=== PATIENT | female | born 1945 | race Caucasian/White ===

== ENCOUNTER 2016-09-23 15:25 | Emergency (ER) | payer MEDICARE, OTHER ==
[2016-09-23 14:47] LABS: ASCORBIC ACID (UR NOT ORDER) NEG (NEG); BILIRUBIN, URINE NEGATIVE (NEG); ER URINALYSIS TAT 0 Hrs 13 Mins; KETONE, URINE NEGATIVE (NEG); LEUKOCYTE ESTERASE(NOT OR MOD (NEG); NITRITE (URINE) NEG (NEG); WBC (NOT ORDERED) (RFLEX) 6 (0-5)
[~2016-09-23 15:25] MED LIST: DIOVAN HC2 PO; FOLIC ACID PO; NEUR300 PO; NORCO1 TA1 PO; P5 PO; PLAQ200B PO; SULFAZINE EC500 MG PO; ULTRAM50 PO; VITAMIN D31000 UNIT PO
[2016-09-23 16:29] LABS: BASOPHILS 0.1 %; BASOPHILS ABSOLUTE 0.01 10/3/uL (0.0-0.16); EOSINOPHILS 0.9 %; EOSINOPHILS ABSOLUTE 0.07 10/3/uL (0.0-0.53); ER CBC TAT 0 Hrs 09 Mins; HEMATOCRIT 30.5 % (36.0-48.0); HEMOGLOBIN 9.5 g/dL (12.0-16.0); IMMATURE GRANULOCYTES 0.7 %; IMMATURE GRANULOCYTES ABSOLUTE 0.06 10/3/uL (0.0-0.11); LYMPHOCYTES 6.4 %; LYMPHOCYTES ABSOLUTE 0.52 10/3/uL (0.67-4.30); MANUAL DIFF NO %; MEAN CORPUS HGB CONC 31.1 g/dL (32.0-36.0); MEAN CORPUSCULAR HEMOGLOB 27.8 pg (26.0-34.0); MEAN CORPUSCULAR VOLUME 89.2 fL (80-100); MEAN PLATELET VOLUME 8.6 fL (9.2-13.0); MONOCYTES 4.2 %; MONOCYTES ABSOLUTE 0.34 10/3/uL (0.21-1.20); NEUTROPHILS 87.7 %; NEUTROPHILS ABSOLUTE 7.17 10/3/uL (2.02-8.40); PLATELET COUNT 284 10/3/uL (150-400); RBC DISTRIBUTION WIDTH 14.4 % (12.0-16.0); RED CELL COUNT 3.42 10/6/uL (4.0-5.6); WHITE BLOOD CELLS 8.2 10/3/uL (4.5-10.5)
[2016-09-23 16:44] LABS: A/G RATIO 0.7 (0.7-1.9); ALBUMIN 2.8 G/DL (3.5-5.0); CALCIUM, SERUM 9.4 MG/DL (8.5-10.4); CHLORIDE, SERUM 101 MMOL/L (96-112); CO2 (CARBON DIOXIDE) 35 MMOL/L (24-34); CPK 46 U/L (0-200); CREATININE 0.98 MG/DL (0.55-1.02); GFR AFRICAN AMERICAN 68 ML/MIN (>=60); GFR NON AFRICAN AMERICAN 59 ML/MIN (>=60); GLOBULIN 4.2 G/DL (2.5-4.1); POTASSIUM, SERUM 4.1 MMOL/L (3.5-5.3); SGOT(AST) 25 U/L (5-40); SGPT(ALT) 23 U/L (5-65); SODIUM, SERUM 141 MMOL/L (135-148); TOTAL BILIRUBIN 0.5 MG/DL (0-1.2)
[2016-09-23 16:45] LABS: ALKALINE PHOSPHATASE 231 U/L (45-117); BUN (BLOOD UREA NITROGEN) 19 MG/DL (6-23); GLUCOSE, SERUM 114 MG/DL (60-99)
[2016-09-27] MEDS ORDERED: NEUR100 PO (15:35)
[2016-09-27] MEDS ORDERED: SULFAZINE EC500 MG PO (15:39)
[2016-09-27] MEDS ORDERED: P10 PO (15:39)
[2016-09-27] MEDS ORDERED: PLAQ200B PO (15:39)
[2016-09-27] MEDS ORDERED: VITAMIN D1000 UNI1 PO (15:40)
[2016-09-27] MEDS ORDERED: ULTRAM50 PO (15:40)
[2016-09-27] MEDS ORDERED: FOLIC PO (15:40)
[2016-09-27] MEDS ORDERED: MIRALAX POWDER1 PKT PO (15:40)
[2016-09-27] MEDS ORDERED: PCET PO (15:40)
[2016-09-27] MEDS ORDERED: STIOLTO RESPIMAT4 GM INH (15:41)
== END 2016-09-23 18:10 | disposition home or self-care (01) ==
LOC: ER 15:25
PROVIDERS: Physician Assistant
DX: S42.032A Displaced fracture of lateral end of left clavicle, initial encounter for closed fracture (principal); R10.2 Pelvic and perineal pain; I10 Essential (primary) hypertension; Z79.52 Long term (current) use of systemic steroids; Z79.899 Other long term (current) drug therapy; W01.0XXA Fall on same level from slipping, tripping and stumbling without subsequent striking against object, initial encounter
CPT/HCPCS: 73030-LT; 73060-LT; 73110-LT; 73502-LT; 73552-LT; 80053; 81001; 82550; 85025; 87086; 99284; A9270-GY

== ENCOUNTER 2016-09-27 16:17 | Inpatient (IN) | payer MEDICARE, OTHER ==
--- NOTE | ~2016-09-27 | DS ---
Discharge Summary [facility] [address] [place]. [address] NAME: SHAWNA GALINDO : 47 STATUS : DIS IN PAT#: [id number] AGE: 70 ADM/REG DATE : 09/27/16 MR#: [id number] REPORT SERV DATE: 10/01/16 DICTATED BY: FLAKITO KING DATE: 09/30/16 REPORT STATUS : Draft TRANSCRIBED BY: MODL DATE: 09/30/16 ADMISSION DATE: 09/27/2016 DISCHARGE DATE: 09/30/2016 DISCHARGE DIAGNOSES: Include: 1. Pelvic fractures status post fall. 2. Gait impairment and acute pain. 3. History of rheumatoid arthritis. 4. Nausea, improved. 5. Anemia, chronic. 6. History of chronic obstructive pulmonary disease, on chronic home O2. 7. Old right humerus fracture. 8. Recent hysterectomy on 09/13/2016 for endometrial cancer. DISCHARGE MEDICATIONS: As follows vitamin D 1000 units p.o. daily, folic acid 1 mg daily, gabapentin 300 mg at bedtime, Plaquenil 200 mg daily, Sulfazine EC 500 mg 4 tablets twice a day, prednisone 10 mg daily, MiraLAX one packet daily, tramadol 50 mg every four hours p.r.n. for pain, Percocet 5/325 one tablet every four hours p.r.n. for pain if not relieved by the Ultram, milk of magnesia p.r.n., Dulcolax suppositories 10 mg p.r.n., Duo-Nebs q.4 hours p.r.n. for shortness of breath and wheezing. HISTORY OF PRESENT ILLNESS: This is very pleasant, 70-year-old white female, who presented to the [facility] Emergency Room having fallen and with inability to walk or bear weight, found to have acute pelvic fractures. Please see the initial H and P of Dr. Kia Rendon. This patient was admitted to the Hospitalist Service for further evaluation and treatment and for rehab placement. CONSULTANTS DURING THIS ADMISSION: Include Orthopedic, Dr. Amado Beyer. CONTINUATION OF HOSPITAL COURSE: The patient was seen by Orthopedic surgery, Dr. Beyer. This was a nonsurgical pelvic fracture, and she was found to be weightbearing as tolerated. She was seen by Physical Therapy who recommended inpatient rehab placement, and the patient continued to do well with Physical Therapy. While hospitalized here, she did have some mild anemia per lab work which was followed but has been stable. She also had some mild nausea which has resolved. She was continued on her 2 L nasal cannula which she uses chronically. She has had no fevers. Kidney function has been fine. Blood pressure has also been within normal limits as well. She was felt safe for discharge to [facility] on 09/30/2016, instructed to follow up with her primary care after discharge from rehab. Questions were answered of patient. DICTATED BY: Flakito King NP CSC/RUTHY Discharge Summary [address] [place]. [address] NAME: SHAWNA GALINDO : 47 STATUS : DIS IN PAT#: [id number] AGE: 70 ADM/REG DATE : 09/27/16 MR#: [id number] REPORT SERV DATE: 10/01/16 DICTATED BY: FLAKITO KING [facility] DATE: 09/30/16 REPORT STATUS : Draft TRANSCRIBED BY: RUTHY DATE: 09/30/16 Flakito King NP / [id number] CC: Alexandru Hudson M.D.
--- NOTE | ~2016-09-27 | HP ---
History And Physical [address] [place]. [address] NAME: SHAWNA GALINDO : 47 STATUS : ADM IN [facility]#: [id number] AGE: 70 ADM/REG DATE : 09/27/16 MR#: [id number] REPORT SERV DATE: 09/28/16 DICTATED BY: ANGEL RIVER DATE: 09/28/16 REPORT STATUS : Draft TRANSCRIBED BY: MODL DATE: 09/28/16 DATE OF ADMISSION: 09/27/2016 CHIEF COMPLAINT: Right hip and groin pain and sacral pain. HISTORY: 70-year-old female who has had increasing pain to the sacrum and pelvis area for the last week, that she has been seen in the office previously by another surgeon. Had CT scan ordered for, I get report but I am not been able to get the films, show stable pelvis fracture. Denies any significant pain or injury elsewhere. She has a complicated recent history with hysterectomy and chemo planned. ALLERGIES: NONE. MEDICATIONS: See chart. PAST MEDICAL HISTORY: Hypertension, rheumatoid arthritis, menopause, parathyroid surgery, and anemia. PAST SURGICAL HISTORY: Cholecystectomy 10+ years ago, parathyroid surgery x2 10+ years ago, appendectomy at age 30. She reports 2 weeks ago she had a hysterectomy for cancer by Dr. Recio with chemotherapy planned at some point in future. SOCIAL HISTORY: Pack a week of cigarettes for about 30 years. No alcohol or illicit drug use. FAMILY HISTORY: No known anesthetic complications. REVIEW OF SYSTEMS: As noted above. PHYSICAL EXAMINATION: GENERAL: She is alert and oriented x3, in no apparent distress. HEENT: Atraumatic, normocephalic. NECK: Supple. CHEST: Symmetric, nontender. LUNGS: Per medicine evaluation. ABDOMEN: With a recent hysterectomy. EXTREMITIES: Both upper extremities without acute trauma. Left lower extremity without acute trauma. Right lower extremity with decreased range of motion. Pain on flexion, abduction, internal or external rotation of the hip. Skin is intact except for diffuse ecchymosis. 2+ pulses. NEURO: Sensorimotor without deficit. CT scan by report from an outside imaging facility was stable pelvis fracture. I have reviewed the x-rays that were done here from 09/23/2016 that showed questionable stable pelvis fracture, but no obvious acute injury. History And Physical [address] [place]. [address] NAME: SHAWNA GALINDO : 47 STATUS : ADM IN PAT#: [id number] AGE: 70 ADM/REG DATE : 09/27/16 MR#: [id number] REPORT SERV DATE: 09/28/16 DICTATED BY: ANGEL RIVER DATE: 09/28/16 REPORT STATUS : Draft TRANSCRIBED BY: MODL DATE: 09/28/16 ASSESSMENT: Stable pelvis fracture by report and CT scan films not available to me that is consistent with what she describes. PLAN: I am still trying to get those CT films, it is the weekend. Discussed weight bearing as tolerated. Resuming chemotherapy per Dr. Recio and he seems appropriate and he deems appropriate analgesics as necessary. WTB/MODL Sarika River M.D. / [id number] CC: Alexandru Hudson M.D.
--- NOTE | ~2016-09-27 | HP ---
History And Physical [facility] [address] [place]. [address] NAME: SHAWNA GALINDO : 47 STATUS : ADM IN PAT#: [id number] AGE: 70 ADM/REG DATE : 09/27/16 MR#: [id number] REPORT SERV DATE: 09/27/16 DICTATED BY: JULISSA SHARP DATE: 09/27/16 REPORT STATUS : Draft TRANSCRIBED BY: MODL DATE: 09/27/16 DATE OF ADMISSION: 09/27/2016 HISTORY OF PRESENT ILLNESS: The patient is 70-year-old female, who initially came to [facility] after she fell because she slept on the rock on the night of 09/23/2016, and at that time, she had several x-rays done on 09/23/2016. She was found to have fracture of the distal left clavicle, 3 cm proximal to the AC joint. The humerus was intact. At that time, she also had an x-ray of the left femur, which did not show any fractures; as well as x-ray of the left shoulder, which only showed the above-mentioned clavicular fracture; and the x-ray of the wrist, which did not show any fractures. After she went home, the patient was still complaining of the pain on the left pelvic area and they went to see Dr. Ward Diaz, orthopedist, who basically did an x-ray and then CT scan, and the patient was found to have pelvic fracture in several places. Orthopedic, Dr. Diaz, recommended the patient not to bear any weight on the left lower leg and also he did not recommend any surgery for the pelvic fracture as well as he did not recommend any surgery for the clavicular fracture, but because of the increasing pain and unable to function on her own at home, she was recommended to go to [facility], especially in the situation that she had surgery for endometrial cancer two weeks ago, it was a robotic surgery, which was done at [facility]. Also, I see what was reported on Dr. Diaz's visit as multiple pelvic fracture on the CT scan done on 09/25/2016. She had acute nondisplaced fracture for the anterior column of the left acetabulum and displaced overriding fracture of the inferior left ischial ramus, mild deformities of the left sacral ala, right pubic body, and inferior right ischial ramus, and anterior column of the right acetabulum, likely represents previous fractures in various stages of healing. Postoperative fluid collection along with the right pelvic sidewall, deep sebaceous gas across the entire anterior lower abdominal and pelvic wall. No surgical drain. No open wound identified. I see also Dr. Diaz's recommendation, she should be nonweightbearing and she needs to have a wheelchair and physical therapy, [place] recommended. PAST MEDICAL HISTORY: I have from records here is known for, as I dictated above, recent closed left acetabular fracture; closed left clavicular fracture, which happened on 09/23/2016; history of endometrial carcinoma, status post robotic surgery two weeks ago; history of falls in the past because of imbalance; former smoker; hypertension, currently was taken off blood pressure medications; multiple pelvic fracture as mentioned above, happened on 09/23/2016; osteoporosis; rheumatoid arthritis; status post colonoscopy; anemia; history of postherpetic neuralgia in the past; rheumatoid arthritis; stage 3 chronic kidney disease. SOCIAL HISTORY: Nondrinker. No recreational drug use. The patient herself is a former smoker. ALLERGIES: NO KNOWN DRUG ALLERGIES. History And Physical [address] [address] NAME: SHAWNA GALINDO : 47 STATUS : ADM IN [facility]#: [id number] AGE: 70 ADM/REG DATE : 09/27/16 MR#: [id number] REPORT SERV DATE: 09/27/16 DICTATED BY: JULISSA SHARP DATE: 09/27/16 REPORT STATUS : Draft TRANSCRIBED BY: RUTHY DATE: 09/27/16 FAMILY HISTORY: Positive for hypertension on both sides. Osteoporosis and cardiac disorders as well as arthritis. HOME MEDICATIONS: Vitamin D 1000 units daily, folic acid 1 mg daily, Neurontin 100-300 at bedtime, Plaquenil 200 mg daily, oxycodone/acetaminophen 5/325 p.o. q.4 hours p.r.n. for pain, MiraLAX one packet daily p.r.n. for constipation, prednisone 10 mg daily, 200 mg b.i.d., tramadol 50 mg p.o. q.4 hours p.r.n. REVIEW OF SYSTEMS: The patient is complaining of constipation. No chest pain. No shortness of breath. Afebrile. No abdominal pain. Complaining of pain in the hip. All 14-point review of systems done and negative except what is listed above. PHYSICAL EXAMINATION: GENERAL: Well-nourished, well-developed female, not in acute distress. Resting quietly. VITAL SIGNS: Blood pressure 128/58, temperature 98.2, heart rate 110-114, respiratory rate 20. Oxygen saturation initially was 87 on room air, on recheck was 92. HEENT: Head, atraumatic, normocephalic. Conjunctivae clear. Pupils are equal and reactive to light and accommodation. Extraocular muscles are intact. NECK: Supple. Trachea is midline. No supraclavicular or cervical lymphadenopathy. LUNGS: Clear to auscultation bilaterally. Normal respiratory effort. CARDIOVASCULAR SYSTEM: Regular rate and rhythm. Point of maximal impulse not displaced. ABDOMEN: Soft, nontender, nondistended. Positive normoactive bowel sounds. Surgical scar looks clean. EXTREMITIES: No clubbing, cyanosis, or edema. SKIN: Normal color and turgor. LABORATORY RESULTS: Sodium 141, potassium 4.1, chloride 101, carbon dioxide 35, BUN 19, creatinine 0.98. Blood sugar 114. Alkaline phosphatase 231, ALT 23, AST 25. CPK 46. She had also CBC done on 09/23/2016, which showed white count 8.2, hemoglobin 9.5, hematocrit 30.5, and a platelet count of 284. ASSESSMENT AND PLAN: 1. This is a very pleasant 70-year-old female with a history of rheumatoid arthritis, history of balance problems, status post fall, developed multiple pelvic fractures. She should be nonweightbearing and she needs pain control as well as she needs inpatient physical therapy for these fractures. 2. Status post hysterectomy two weeks ago, postsurgical from two weeks also, needs inpatient rehabilitation. 3. Rheumatoid arthritis. Currently stable. We will give her reasonable control of pain and nausea. For constipation, we will give her laxatives. We will ask Dr. Ward Diaz to come to give his further recommendations, and the patient will need to be evaluated for [facility]. History And Physical [address] [place]. [address] NAME: MATEOSHAWNA : 47 STATUS : ADM IN PAT#: [id number] AGE: 70 ADM/REG DATE : 09/27/16 MR#: [id number] REPORT SERV DATE: 09/27/16 DICTATED BY: JULISSA SHARP DATE: 09/27/16 REPORT STATUS : Draft TRANSCRIBED BY: MODL DATE: 09/27/16 Also, we will give her gentle IV fluid hydration. MG/MODL Julissa Sharp M.D. / [id number] CC: Alexandru Hurley M.D.
[~2016-09-27 16:17] MED LIST changes: +FOLIC PO; +MIRALAX POWDER1 PKT PO; +NEUR100 PO; +P10 PO; +PCET PO; +STIOLTO RESPIMAT4 GM INH; +VITAMIN D1000 UNI1 PO
[2016-09-27 16:37] LABS: BASOPHILS 0.2 %; BASOPHILS ABSOLUTE 0.02 10/3/uL (0.0-0.16); EOSINOPHILS 0.2 %; EOSINOPHILS ABSOLUTE 0.02 10/3/uL (0.0-0.53); HEMATOCRIT 33.3 % (36.0-48.0); HEMOGLOBIN 10.2 g/dL (12.0-16.0); IMMATURE GRANULOCYTES 0.5 %; IMMATURE GRANULOCYTES ABSOLUTE 0.06 10/3/uL (0.0-0.11); LYMPHOCYTES 3.4 %; LYMPHOCYTES ABSOLUTE 0.43 10/3/uL (0.67-4.30); MEAN CORPUS HGB CONC 30.6 g/dL (32.0-36.0); MEAN CORPUSCULAR HEMOGLOB 27.2 pg (26.0-34.0); MEAN CORPUSCULAR VOLUME 88.8 fL (80-100); MEAN PLATELET VOLUME 9.2 fL (9.2-13.0); MONOCYTES 2.4 %; MONOCYTES ABSOLUTE 0.31 10/3/uL (0.21-1.20); NEUTROPHILS 93.3 %; NEUTROPHILS ABSOLUTE 11.99 10/3/uL (2.02-8.40); PLATELET COUNT 344 10/3/uL (150-400); RBC DISTRIBUTION WIDTH 14.8 % (12.0-16.0); RED CELL COUNT 3.75 10/6/uL (4.0-5.6)
[2016-09-27 16:38] LABS: ER CBC TAT 0 Hrs 09 Mins; MANUAL DIFF NO %; WHITE BLOOD CELLS 12.8 10/3/uL (4.5-10.5)
[2016-09-27 16:49] LABS: A/G RATIO 0.6 (0.7-1.9); BUN (BLOOD UREA NITROGEN) 20 MG/DL (6-23); CALCIUM, SERUM 9.5 MG/DL (8.5-10.4); CHLORIDE, SERUM 100 MMOL/L (96-112); CO2 (CARBON DIOXIDE) 33 MMOL/L (24-34); CREATININE 1.15 MG/DL (0.55-1.02); GFR AFRICAN AMERICAN 56 ML/MIN (>=60); GFR NON AFRICAN AMERICAN 49 ML/MIN (>=60); GLUCOSE, SERUM 128 MG/DL (60-99); POTASSIUM, SERUM 3.8 MMOL/L (3.5-5.3); SGOT(AST) 21 U/L (5-40); SGPT(ALT) 20 U/L (5-65); SODIUM, SERUM 139 MMOL/L (135-148); TOTAL BILIRUBIN 0.4 MG/DL (0-1.2)
[2016-09-27 16:51] LABS: ALKALINE PHOSPHATASE 267 U/L (45-117)
[2016-09-28 04:43] LABS: BASOPHILS 0.1 %; BASOPHILS ABSOLUTE 0.01 10/3/uL (0.0-0.16); EOSINOPHILS 1.9 %; EOSINOPHILS ABSOLUTE 0.16 10/3/uL (0.0-0.53); HEMATOCRIT 27.3 % (36.0-48.0); HEMOGLOBIN 8.5 g/dL (12.0-16.0); IMMATURE GRANULOCYTES 0.5 %; IMMATURE GRANULOCYTES ABSOLUTE 0.04 10/3/uL (0.0-0.11); LYMPHOCYTES 14.3 %; LYMPHOCYTES ABSOLUTE 1.18 10/3/uL (0.67-4.30); MANUAL DIFF NO %; MEAN CORPUS HGB CONC 31.1 g/dL (32.0-36.0); MEAN CORPUSCULAR HEMOGLOB 27.4 pg (26.0-34.0); MEAN CORPUSCULAR VOLUME 88.1 fL (80-100); MEAN PLATELET VOLUME 8.6 fL (9.2-13.0); MONOCYTES 8.1 %; MONOCYTES ABSOLUTE 0.67 10/3/uL (0.21-1.20); NEUTROPHILS 75.1 %; PLATELET COUNT 245 10/3/uL (150-400); RBC DISTRIBUTION WIDTH 14.8 % (12.0-16.0); WHITE BLOOD CELLS 8.3 10/3/uL (4.5-10.5)
[2016-09-28 04:56] LABS: BUN (BLOOD UREA NITROGEN) 18 MG/DL (6-23); CHLORIDE, SERUM 104 MMOL/L (96-112); CO2 (CARBON DIOXIDE) 30 MMOL/L (24-34); CREATININE 0.94 MG/DL (0.55-1.02); GFR AFRICAN AMERICAN 72 ML/MIN (>=60); GFR NON AFRICAN AMERICAN 62 ML/MIN (>=60); POTASSIUM, SERUM 3.7 MMOL/L (3.5-5.3); SODIUM, SERUM 141 MMOL/L (135-148)
[2016-09-28 04:57] LABS: GLUCOSE, SERUM 87 MG/DL (60-99)
[2016-09-28 16:45] LABS: HEMOGLOBIN 9.5 g/dL (12.0-16.0)
[2016-09-28 16:46] LABS: HEMATOCRIT 30.9 % (36.0-48.0)
[2016-09-29 05:39] LABS: BASOPHILS 0.1 %; BASOPHILS ABSOLUTE 0.01 10/3/uL (0.0-0.16); EOSINOPHILS 2.6 %; HEMATOCRIT 28.1 % (36.0-48.0); HEMOGLOBIN 8.7 g/dL (12.0-16.0); IMMATURE GRANULOCYTES 0.4 %; IMMATURE GRANULOCYTES ABSOLUTE 0.03 10/3/uL (0.0-0.11); LYMPHOCYTES 14.2 %; LYMPHOCYTES ABSOLUTE 1.09 10/3/uL (0.67-4.30); MEAN CORPUSCULAR HEMOGLOB 27.1 pg (26.0-34.0); MEAN CORPUSCULAR VOLUME 87.5 fL (80-100); MEAN PLATELET VOLUME 8.5 fL (9.2-13.0); MONOCYTES 7.6 %; MONOCYTES ABSOLUTE 0.58 10/3/uL (0.21-1.20); NEUTROPHILS 75.1 %; NEUTROPHILS ABSOLUTE 5.75 10/3/uL (2.02-8.40); PLATELET COUNT 265 10/3/uL (150-400); RBC DISTRIBUTION WIDTH 14.6 % (12.0-16.0); RED CELL COUNT 3.21 10/6/uL (4.0-5.6); WHITE BLOOD CELLS 7.7 10/3/uL (4.5-10.5)
[2016-09-29 05:42] LABS: MANUAL DIFF NO %
[2016-09-29 05:49] LABS: CALCIUM, SERUM 8.8 MG/DL (8.5-10.4); CHLORIDE, SERUM 98 MMOL/L (96-112); CO2 (CARBON DIOXIDE) 33 MMOL/L (24-34); CREATININE 0.81 MG/DL (0.55-1.02); GFR AFRICAN AMERICAN 86 ML/MIN (>=60); GFR NON AFRICAN AMERICAN 74 ML/MIN (>=60); GLUCOSE, SERUM 97 MG/DL (60-99); POTASSIUM, SERUM 3.9 MMOL/L (3.5-5.3); SODIUM, SERUM 138 MMOL/L (135-148)
[2016-09-29 05:52] LABS: BUN (BLOOD UREA NITROGEN) 14 MG/DL (6-23)
[2016-09-30 05:03] LABS: HEMATOCRIT 29.4 % (36.0-48.0); HEMOGLOBIN 9.1 g/dL (12.0-16.0)
[2016-09-30 05:11] LABS: POTASSIUM, SERUM 4.4 MMOL/L (3.5-5.3)
== END 2016-09-30 22:17 | DRG 536 ==
LOC: ER 16:17 → 3SO 17:35
PROVIDERS: Internal Medicine; Nurse Practitioner Family; Physician Assistant
DX: S32.9XXA Fracture of unspecified parts of lumbosacral spine and pelvis, initial encounter for closed fracture (principal); D64.9 Anemia, unspecified; W18.30XA Fall on same level, unspecified, initial encounter; S42.301D Unspecified fracture of shaft of humerus, right arm, subsequent encounter for fracture with routine healing; S42.002A Fracture of unspecified part of left clavicle, initial encounter for closed fracture
CPT/HCPCS: 71010; 80048; 80053; 83735; 84132; 85014; 85018; 85025; 97162-GP; 97530-GP; 99284; A9270-GY; G8978-CL-GP; G8979-CL-GP; G8980-CK-GP; J2405